=== PATIENT | female | born 1970 | race Caucasian/White ===

== ENCOUNTER → 2020-11-07 | Outpatient (CLI) | payer OTHER ==
[~2020-11-07] MED LIST: ASPIRIN81 MG PO; AUGMENTIN 875-1 EACH PO; CIPROFLOX-DEXA7.5 ML EARRT; COLACE 100MG C100 MG PO; CYCLOBENZAPRINE5 MG PO; IBU800 MG PO; LEVOTHYROXINE100 MCG PO; LIPITOR TAB 2020 MG PO; MELOXICAM7.5 MG PO; METOPROLOL TART25 MG PO; MOBIC15 MG PO; NEURONTIN 100100 MG PO; PRILOSEC OTC20 MG PO; PROVENTIL HFA 61 INH INH; VITAMIN D50000 UNIT PO; ZYRTEC10 MG PO
[2020-11-07 18:15] LABS: HEMOGLOBIN 15.5 gm/dl (12.3-15.3); RED BLOOD COUNT 5.1 M/UL (4.00-5.10); WHITE BLOOD COUNT 8.2 K/UL (4.5-11.0)
[2020-11-07 18:39] LABS: BUN/CREATININE RATIO 8 (0-10)
[2020-11-09 08:14] LABS: VITAMIN D, 25-HYDROXY 25.5 ng/mL (30.0-100.0)
[2020-11-09 16:15] LABS: LYME IGG/IGM AB <0.91 ISR (0.00-0.90)
== END ==
LOC: LAB 17:11
PROVIDERS: Family Medicine
DX: E03.9 Hypothyroidism, unspecified (principal); E55.9 Vitamin D deficiency, unspecified; E78.2 Mixed hyperlipidemia; K21.9 Gastro-esophageal reflux disease without esophagitis; Z79.899 Other long term (current) drug therapy; W57.XXXA Bitten or stung by nonvenomous insect and other nonvenomous arthropods, initial encounter
CPT/HCPCS: 36415; 80053; 80061; 82607; 83735; 84439; 84443; 85027; 86618

== ENCOUNTER → 2020-11-23 | Outpatient (CLI) | payer OTHER | LOC: MAMO 13:00 | DX: Z12.31 Encounter for screening mammogram for malignant neoplasm of breast (principal) | CPT/HCPCS: 77063; 77067 ==

== ENCOUNTER 2021-01-08 11:50 | Emergency (ER) | payer OTHER ==
[~2021-01-08 11:50] MED LIST changes: -CIPROFLOX-DEXA7.5 ML EARRT
[2021-01-08] MEDS ORDERED: CIPROFLOX-DEXA7.5 ML EARRT (11:59)
== END 2021-01-08 12:22 | disposition home or self-care (01) ==
LOC: ER1 11:50
DX: H60.92 Unspecified otitis externa, left ear (principal); F17.200 Nicotine dependence, unspecified, uncomplicated; I10 Essential (primary) hypertension
CPT/HCPCS: 99282

== ENCOUNTER → 2021-01-22 | Outpatient (CLI) | payer OTHER ==
[~2021-01-22] MED LIST changes: +CIPROFLOX-DEXA7.5 ML EARRT
== END ==
LOC: KOH-I 10:09
DX: M79.671 Pain in right foot (principal); M19.071 Primary osteoarthritis, right ankle and foot
CPT/HCPCS: 73630

== ENCOUNTER → 2021-02-28 | Outpatient (CLI) | payer OTHER ==
[~2021-02-28] MED LIST changes: +BENADRYL25 MG PO; +DICLOFENAC GEL 1% TOP; +FLUDROCORTISON0.1 MG PO; +LEVOTHYROXINE125 MC1 PO; +LIPITOR10 MG PO; +OMEGA 3 FISH O1 EACH PO; +PROTONIX40 MG PO; +RANEXA500 MG PO; +VITAMIN D325 MCG PO
== END ==
LOC: HEART 5 13:30
DX: R55 Syncope and collapse (principal); R00.2 Palpitations

== ENCOUNTER → 2021-03-01 | Day surgery (SDC) | payer OTHER | END | disposition home or self-care (01) | LOC: OR 02-15 08:15 | DX: H69.93 Unspecified Eustachian tube disorder, bilateral (principal); H90.3 Sensorineural hearing loss, bilateral; J34.2 Deviated nasal septum; H92.03 Otalgia, bilateral; F17.210 Nicotine dependence, cigarettes, uncomplicated; Z79.82 Long term (current) use of aspirin; Z79.899 Other long term (current) drug therapy; Z20.822 Contact with and (suspected) exposure to COVID-19 | CPT/HCPCS: 84703; C1726; J1100; J1885; J2250; J2405; J2704; J3010; J7120 ==

== ENCOUNTER → 2021-03-06 | Outpatient (CLI) | payer OTHER | LOC: EXRD 08:00 | DX: Z01.810 Encounter for preprocedural cardiovascular examination (principal); I73.9 Peripheral vascular disease, unspecified | CPT/HCPCS: 93926 ==

== ENCOUNTER → 2021-03-21 | Outpatient (CLI) | payer OTHER ==
[2021-03-21 15:03] LABS: HEMOGLOBIN 14.5 gm/dl (12.3-15.3); WHITE BLOOD COUNT 7.8 K/UL (4.5-11.0)
[2021-03-21 15:24] LABS: BUN/CREATININE RATIO 11 (0-10)
== END ==
LOC: LAB 12:58
PROVIDERS: Family Medicine
DX: E55.9 Vitamin D deficiency, unspecified (principal); E03.9 Hypothyroidism, unspecified; E78.2 Mixed hyperlipidemia; M54.50 Low back pain, unspecified; M47.816 Spondylosis without myelopathy or radiculopathy, lumbar region
CPT/HCPCS: 36415; 72110; 80053; 80061; 82607; 82746; 83735; 84439; 84443; 85027

== ENCOUNTER → 2021-04-16 | Outpatient (CLI) | payer OTHER | LOC: EXRD 14:45 | DX: R06.00 Dyspnea, unspecified (principal); R91.8 Other nonspecific abnormal finding of lung field | CPT/HCPCS: 71046 ==

== ENCOUNTER → 2021-05-21 | Outpatient (CLI) | payer OTHER | LOC: HEART 5 13:15 | DX: R06.00 Dyspnea, unspecified (principal) | CPT/HCPCS: 94060; 94729 ==

== ENCOUNTER → 2021-05-24 | Outpatient (CLI) | payer OTHER ==
[2021-05-25 05:09] LABS: TSH 0.71 uIU/mL (0.450-4.500)
[2021-05-25 19:11] LABS: HEPATITIS C QUANTITATION HCV Not Detected IU/mL (.)
== END ==
LOC: LAB 14:08
PROVIDERS: Family Medicine
DX: E03.9 Hypothyroidism, unspecified (principal); B19.20 Unspecified viral hepatitis C without hepatic coma; R93.89 Abnormal findings on diagnostic imaging of other specified body structures
CPT/HCPCS: 36415; 84439; 84443; 87522

== ENCOUNTER → 2021-05-27 | Outpatient (CLI) | payer OTHER | LOC: KOH-I 09:47 | DX: M79.671 Pain in right foot (principal); M19.071 Primary osteoarthritis, right ankle and foot | CPT/HCPCS: 73630 ==

== ENCOUNTER → 2021-05-28 | Outpatient (CLI) | payer OTHER | LOC: KOH-I 13:00 | DX: R93.89 Abnormal findings on diagnostic imaging of other specified body structures (principal); R91.8 Other nonspecific abnormal finding of lung field | CPT/HCPCS: 71250 ==

== ENCOUNTER 2021-07-18 16:14 | Emergency (ER) | payer OTHER ==
[2021-07-18 16:43] LABS: HEMOGLOBIN 15.6 gm/dl (12.3-15.3); RED BLOOD COUNT 5.39 M/UL (4.00-5.10); WHITE BLOOD COUNT 8.8 K/UL (4.5-11.0)
[2021-07-18 17:15] LABS: BUN/CREATININE RATIO 13 (0-10)
== END 2021-07-18 21:44 | disposition home or self-care (01) ==
LOC: ER1 16:14
PROVIDERS: Emergency Medicine
DX: R55 Syncope and collapse (principal); Z20.822 Contact with and (suspected) exposure to COVID-19; I25.10 Atherosclerotic heart disease of native coronary artery without angina pectoris; F17.210 Nicotine dependence, cigarettes, uncomplicated
CPT/HCPCS: 70450; 71045; 75635; 80053; 81001; 82550; 82553; 82962; 83735; 83880; 84100; 84439; 84443; 84484; 85025; 85610; 85730; 93005; 96374; 99284; J1885; U0002

== ENCOUNTER → 2021-07-18 | Outpatient (CLI) | payer OTHER | LOC: CT 14:40 | DX: I70.211 Atherosclerosis of native arteries of extremities with intermittent claudication, right leg (principal); J44.9 Chronic obstructive pulmonary disease, unspecified | CPT/HCPCS: 36415; 82565; 84520; Q9967 ==

== ENCOUNTER → 2021-07-22 | Outpatient (CLI) | payer OTHER | LOC: HEART 5 07-01 15:00 | DX: I20.9 Angina pectoris, unspecified (principal); R06.02 Shortness of breath; I34.0 Nonrheumatic mitral (valve) insufficiency; I07.1 Rheumatic tricuspid insufficiency ==

== ENCOUNTER → 2021-08-14 | Outpatient (CLI) | payer OTHER | LOC: KOH-I 09:09 | DX: M50.31 Other cervical disc degeneration, high cervical region (principal); M47.812 Spondylosis without myelopathy or radiculopathy, cervical region; M48.02 Spinal stenosis, cervical region | CPT/HCPCS: 72141 ==

== ENCOUNTER → 2021-08-20 | Outpatient (CLI) | payer OTHER ==
[2021-08-20 13:30] LABS: HEMOGLOBIN 14.1 gm/dl (12.3-15.3); RED BLOOD COUNT 4.91 M/UL (4.00-5.10); WHITE BLOOD COUNT 7.5 K/UL (4.5-11.0)
[2021-08-20 14:12] LABS: BUN/CREATININE RATIO 11 (0-10)
== END ==
LOC: LAB 12:59
PROVIDERS: Family Medicine
DX: E03.9 Hypothyroidism, unspecified (principal); E78.2 Mixed hyperlipidemia; E55.9 Vitamin D deficiency, unspecified; Z79.899 Other long term (current) drug therapy
CPT/HCPCS: 36415; 80053; 80061; 82607; 83735; 84439; 84443; 85027

== ENCOUNTER → 2021-08-29 | Outpatient (CLI) | payer OTHER ==
[~2021-08-29] MED LIST changes: +ACID CONTROLLER10 MG PO; +ADVAIR 250-501 EACH INH; +ALEVE220 MG PO; +BUDESONIDE-FO10.2 G1 INH; +ISOSORBIDE MONO30 MG PO; -LEVOTHYROXINE125 MC1 PO; +NICOTINE PATCH1 EAC2 TD; +PROAIR HFA8.5 GM INH; +SYNTHROID88 MCG PO
[2021-08-29 10:45] LABS: BUN/CREATININE RATIO 15 (0-10)
[2021-08-29 10:49] LABS: HEMOGLOBIN 14.4 gm/dl (12.3-15.3); RED BLOOD COUNT 4.97 M/UL (4.00-5.10)
== END ==
LOC: OPSV2 09:00
PROVIDERS: Podiatrist Foot & Ankle Surgery
DX: Z01.818 Encounter for other preprocedural examination (principal); R94.31 Abnormal electrocardiogram [ECG] [EKG]
CPT/HCPCS: 80048; 85025; 93005

== ENCOUNTER → 2021-08-30 | Day surgery (SDC) | payer OTHER ==
[~2021-08-30] VITALS: Ht 157.5 cm; Wt 73.0 kg
== END | disposition home or self-care (01) ==
LOC: OR 05:54
DX: M19.071 Primary osteoarthritis, right ankle and foot (principal); G89.29 Other chronic pain; I10 Essential (primary) hypertension; E78.5 Hyperlipidemia, unspecified; J44.9 Chronic obstructive pulmonary disease, unspecified; K21.9 Gastro-esophageal reflux disease without esophagitis; E66.9 Obesity, unspecified; E07.9 Disorder of thyroid, unspecified; F17.210 Nicotine dependence, cigarettes, uncomplicated; Z68.33 Body mass index [BMI] 33.0-33.9, adult; Z88.5 Allergy status to narcotic agent; Z79.1 Long term (current) use of non-steroidal anti-inflammatories (NSAID); Z79.899 Other long term (current) drug therapy
CPT/HCPCS: 73630; 76000; C1776; J0690; J1100; J1885; J2001; J2250; J2405; J2704; J2795; J3010; J3370; J7120; Q4133

== ENCOUNTER → 2021-09-12 | Outpatient (CLI) | payer OTHER | LOC: SLEEP 11:35 | DX: R53.83 Other fatigue (principal); G47.33 Obstructive sleep apnea (adult) (pediatric) | CPT/HCPCS: 95810 ==

== ENCOUNTER → 2021-09-17 | Outpatient (CLI) | payer OTHER | LOC: KOH-I 10:09 | DX: M79.671 Pain in right foot (principal) | CPT/HCPCS: 73630 ==

== ENCOUNTER → 2021-09-18 | Outpatient (CLI) | payer OTHER | LOC: KOH-I 16:07 | DX: M79.671 Pain in right foot (principal) | CPT/HCPCS: 73630 ==

== ENCOUNTER 2021-10-17 18:56 | Emergency (ER) | payer OTHER ==
[~2021-10-17 18:56] MED LIST changes: -PERCOCET 5/325 T1 EA PO; -TORADOL 10 MG T10 MG PO
[2021-10-17] MEDS ORDERED: TORADOL 10 MG T10 MG PO (21:52)
[2021-10-17] MEDS ORDERED: PERCOCET 5/325 T1 EA PO (21:52)
== END 2021-10-17 23:10 | disposition home or self-care (01) ==
LOC: ER1 18:56
DX: M25.551 Pain in right hip (principal); I11.9 Hypertensive heart disease without heart failure; E78.5 Hyperlipidemia, unspecified; E07.9 Disorder of thyroid, unspecified; F17.210 Nicotine dependence, cigarettes, uncomplicated; K21.9 Gastro-esophageal reflux disease without esophagitis; Z85.038 Personal history of other malignant neoplasm of large intestine
CPT/HCPCS: 73502; 99283; J1100; J1885; J2550

== ENCOUNTER → 2021-10-17 | Outpatient (CLI) | payer OTHER ==
[~2021-10-17] MED LIST changes: +PERCOCET 5/325 T1 EA PO; +TORADOL 10 MG T10 MG PO
== END ==
LOC: KOH-I 13:05
DX: M79.671 Pain in right foot (principal); Z98.890 Other specified postprocedural states
CPT/HCPCS: 73630

== ENCOUNTER 2021-10-25 15:32 | Emergency (ER) | payer OTHER ==
[~2021-10-25 15:32] MED LIST changes: +PERCOCET 5/325 T1 EA PO; +TORADOL 10 MG T10 MG PO
== END 2021-10-25 18:34 | disposition left against medical advice (07) ==
LOC: ER1 15:32
DX: Z53.21 Procedure and treatment not carried out due to patient leaving prior to being seen by health care provider (principal)

== ENCOUNTER → 2021-11-14 | Outpatient (CLI) | payer OTHER | LOC: KOH-I 09:52 | DX: M79.671 Pain in right foot (principal); Z98.890 Other specified postprocedural states | CPT/HCPCS: 73630 ==

== ENCOUNTER → 2021-12-16 | Outpatient (CLI) | payer OTHER | LOC: KOH-I 10:18 | DX: M79.671 Pain in right foot (principal) | CPT/HCPCS: 73630 ==